=== PATIENT | female | born 1985 | race African-American/Black ===

== ENCOUNTER 2020-10-24 16:40 | Inpatient (IN) | payer OTHER ==
[~2020-10-24] VITALS: Ht 165.1 cm; Wt 115.7 kg
[2020-10-24] MEDS ORDERED: ALBUTEROL 6.7GM HFA INHALER ORI ONE (17:45)
[2020-10-24] MEDS ORDERED: DEXAMETHASONE 10 MG/ML VIAL IV ONE (17:45)
[2020-10-24] MEDS ORDERED: PIPERACILLIN/TAZ 3.375G PREMIX 50 ML IV NR (18:15)
[2020-10-24] MEDS ORDERED: PIPERACILLIN/TAZOBACTAM 3.375GM/50ML PREMIX IV ONE (18:15)
[2020-10-24 19:48] LABS: BASOPHILS % 0.4 % (0.0-2.0); HEMATOCRIT. 44.9 % (36.0-48.0); MEAN CORPUSCULAR HEMOGLOBIN 29.9 pg (28.0-32.0); MEAN CORPUSCULAR VOLUME 89.2 fL (81.0-99.0); MEAN PLATELET VOLUME 8.4 fl (7.4-10.4); MONOCYTES % 5.9 % (2.0-8.0); NEUTROPHILS % 68.7 % (40.0-76.0); PLATELET 218 x1000/uL (130-400); RED BLOOD CELL COUNT 5.03 mill/uL (4.2-5.4); RED CELL DISTRIBUTION WIDTH 13.3 % (11.6-14.6)
[2020-10-24 19:53] LABS: CHLORIDE 104 mEq/L (98-107)
[2020-10-24 20:03] LABS: PROTHROMBIN TIME 10.4 sec (9.6-11.0)
[2020-10-24 20:09] LABS: HCG SCREEN NEGATIVE
[2020-10-24] MEDS ORDERED: POTASSIUM CHLORIDE 20MEQ TABLET SR PO NR (20:15)
[2020-10-24 20:38] LABS: CLARITY URINE CLEAR (CLEAR); COLOR URINE YELLOW (YELLOW); KETONES URINE TRACE (NEGATIVE); LEUKOCYTE ESTERASE URINE NEGATIVE (NEGATIVE); NITRITE URINE NEGATIVE (NEGATIVE); OCCULT BLOOD URINE NEGATIVE (NEGATIVE); PROTEIN URINE 4+ (NEGATIVE); SPECIFIC GRAVITY URINE 1.026 (1.005-1.030)
[2020-10-24] MEDS ORDERED: HYDRALAZINE 20MG/ML VIAL IV ONE (20:45)
[2020-10-24 22:40] VITALS: BP 154/108
[2020-10-25] MEDS ORDERED: IPRATROPIUM/ALBUTEROL 0.5-3(2.5)MG/3ML NEB HHN PRN
[2020-10-25] MEDS: ACETAMINOPHEN 325MG TABLET PO PRN ×2 (00:22→05:53)
[2020-10-25 04:00] VITALS: BP 154/100
[2020-10-25 08:00] VITALS: BP 164/103
[2020-10-25] MEDS ORDERED: PNEUMOCOCCAL 23-VAL P-SAC VAC 0.5 ML IM ONE (08:00)
[2020-10-25] MEDS: FAMOTIDINE 20MG TABLET PO SCH ×2 (08:23→16:24)
[2020-10-25] MEDS: ENOXAPARIN 30MG/0.3ML SYR SUBCUT SCH ×2 (08:24→21:19)
[2020-10-25] MEDS: AZITHROMYCIN 500 MG in DEXT 5% WATER 250 ML IV SCH (08:24)
[2020-10-25] MEDS: CEFTRIAXONE 1,000 MG in DEXTROSE 5% WATER 50 ML IV SCH (08:24)
[2020-10-25] MEDS ORDERED: DEXAMETHASONE 4MG/ML 1ML VIAL IV SCH (09:00)
[2020-10-25] MEDS ORDERED: CEFTRIAXONE 1 G PREMIX 50 ML IV SCH (09:00)
[2020-10-25] MEDS ORDERED: IBUPROFEN 600MG TABLET PO PRN (10:00)
[2020-10-25] MEDS: AMLODIPINE 10MG TABLET PO SCH (11:59)
[2020-10-25 12:00] VITALS: BP 191/94
[2020-10-25] MEDS ORDERED: NALOXONE HCL 0.4MG/ML VIAL IV PRN (14:15)
[2020-10-25] MEDS: HYDROCODONE/ACETAMINOPHEN 5/325MG TABLET PO PRN (15:29)
[2020-10-25 16:00] VITALS: BP 182/107
[2020-10-25] MEDS: LOSARTAN POTASSIUM 100 MG TABLET PO SCH (16:24)
[2020-10-25 18:00] VITALS: BP 145/92
[2020-10-25 19:36] LABS: *BARBITURATES SCREEN URINE NEGATIVE (NEGATIVE)
[2020-10-25 19:37] LABS: *BENZODIAZEPINES SCREEN URINE NEGATIVE (NEGATIVE); *COCAINE SCREEN URINE NEGATIVE (NEGATIVE); METHADONE URINE SCREEN NEGATIVE (NEGATIVE); OPIATES URINE SCREEN PRESUMTIVE POSITIVE (NEGATIVE); PHENCYCLIDINE URINE SCREEN NEGATIVE (NEGATIVE)
[2020-10-25 19:38] LABS: *AMPHETAMINES SCREEN URINE NEGATIVE (NEGATIVE)
[2020-10-25 19:39] LABS: CANNABINOID URINE SCREEN PRESUMTIVE POSITIVE (NEGATIVE)
[2020-10-25 20:00] VITALS: BP 190/123
[2020-10-25] MEDS: CLONIDINE 0.1MG TABLET PO PRN (21:45)
[2020-10-26] VITALS: BP 154/84
[2020-10-26 04:00] VITALS: BP 158/94
[2020-10-26] MEDS: HYDROCODONE/ACETAMINOPHEN 5/325MG TABLET PO PRN ×3 (06:12→21:16)
[2020-10-26] MEDS: GUAIFENESIN-DM 200MG-20MG/10ML UDC PO PRN (06:12)
[2020-10-26] MEDS: CLONIDINE 0.1MG TABLET PO PRN (06:13)
[2020-10-26] MEDS: LOSARTAN POTASSIUM 100 MG TABLET PO SCH (09:00)
[2020-10-26] MEDS: DEXAMETHASONE 10 MG/ML VIAL IV SCH (09:00)
[2020-10-26] MEDS: ACETAMINOPHEN 325MG TABLET PO PRN ×2 (09:34→18:08)
[2020-10-26] MEDS: AZITHROMYCIN 500 MG in DEXT 5% WATER 250 ML IV SCH (09:34)
[2020-10-26] MEDS: CEFTRIAXONE 1,000 MG in DEXTROSE 5% WATER 50 ML IV SCH (09:34)
[2020-10-26] MEDS: FAMOTIDINE 20MG TABLET PO SCH ×2 (09:35→18:07)
[2020-10-26] MEDS: AMLODIPINE 10MG TABLET PO SCH (09:35)
[2020-10-26] MEDS: ENOXAPARIN 30MG/0.3ML SYR SUBCUT SCH ×2 (09:36→21:17)
[2020-10-26 12:00] VITALS: BP 128/80
[2020-10-26] MEDS ORDERED: HYDRALAZINE HCL 50MG TABLET PO NR (13:00)
[2020-10-26] MEDS ORDERED: POTASSIUM CHLORIDE 20MEQ TABLET SR PO SCH (13:45)
[2020-10-26 16:00] VITALS: BP 121/75
[2020-10-26 20:00] VITALS: BP 137/92
[2020-10-26] MEDS: HYDRALAZINE HCL 50MG TABLET PO SCH (21:16)
[2020-10-27] VITALS (7 sets, daily range): BP systolic 136–178; BP diastolic 72–101
[2020-10-27] MEDS: AZITHROMYCIN 500 MG in DEXT 5% WATER 250 ML IV SCH (09:34)
[2020-10-27] MEDS: CEFTRIAXONE 1,000 MG in DEXTROSE 5% WATER 50 ML IV SCH (09:34)
[2020-10-27] MEDS: HYDRALAZINE HCL 50MG TABLET PO SCH ×2 (09:35→21:03)
[2020-10-27] MEDS: FAMOTIDINE 20MG TABLET PO SCH ×2 (09:35→17:39)
[2020-10-27] MEDS: DEXAMETHASONE 10 MG/ML VIAL IV SCH (09:35)
[2020-10-27] MEDS: AMLODIPINE 10MG TABLET PO SCH (09:36)
[2020-10-27] MEDS: HYDROCODONE/ACETAMINOPHEN 5/325MG TABLET PO PRN ×2 (09:36→21:02)
[2020-10-27] MEDS: LOSARTAN POTASSIUM 100 MG TABLET PO SCH (09:43)
[2020-10-27] MEDS: GUAIFENESIN-DM 200MG-20MG/10ML UDC PO PRN ×2 (09:43→17:38)
[2020-10-27] MEDS: ENOXAPARIN 30MG/0.3ML SYR SUBCUT SCH ×2 (09:43→21:03)
[2020-10-27] MEDS: ACETAMINOPHEN 325MG TABLET PO PRN (17:39)
[2020-10-27] MEDS: GUAIFENESIN 600MG ER TABLET PO SCH (21:03)
[2020-10-27] MEDS: CLONIDINE 0.1MG TABLET PO PRN (21:03)
[2020-10-28] VITALS: BP 149/92
[2020-10-28 04:00] VITALS: BP 160/99
[2020-10-28] MEDS: CLONIDINE 0.1MG TABLET PO PRN (04:52)
[2020-10-28 06:00] VITALS: BP 156/88
[2020-10-28] MEDS: CEFTRIAXONE 1,000 MG in DEXTROSE 5% WATER 50 ML IV SCH (08:19)
[2020-10-28] MEDS: GUAIFENESIN 600MG ER TABLET PO SCH (08:19)
[2020-10-28] MEDS: DEXAMETHASONE 10 MG/ML VIAL IV SCH (08:19)
[2020-10-28] MEDS: FAMOTIDINE 20MG TABLET PO SCH ×2 (08:19→17:00)
[2020-10-28] MEDS: AMLODIPINE 10MG TABLET PO SCH (08:19)
[2020-10-28] MEDS: LOSARTAN POTASSIUM 100 MG TABLET PO SCH (08:19)
[2020-10-28] MEDS: HYDRALAZINE HCL 50MG TABLET PO SCH (08:19)
[2020-10-28] MEDS: ENOXAPARIN 30MG/0.3ML SYR SUBCUT SCH (08:20)
[2020-10-28] MEDS: HYDROCODONE/ACETAMINOPHEN 5/325MG TABLET PO PRN (08:22)
[2020-10-28] MEDS ORDERED: AZITHROMYCIN 500 MG TABLET PO SCH (09:00)
[2020-10-28] MEDS: BENZONATATE 100MG CAPSULE PO SCH ×2 (11:35→14:00)
[2020-10-28 12:06] LABS: BG CARBOXYHEMOGLOBIN 0.8 % (0.5-1.5); BG DEOXYHEMOGLOBIN 10.1 % (0.0-5.0); BG FRACTION INSPIRED OXYGEN 21; BG HCO3 ACT 24.8 mmol/L (22.0-26.0); BG METHEMOGLOBIN 0.2 % (0.0-1.5); BG OXYGEN SATURATION 89.8 % (92.0-98.5); BG OXYHEMOGLOBIN 88.9 % (94.0-97.0); BG PCO2 36.8 mmHg (35.0-45.0); BG PH 7.446 (7.350-7.450); BG PO2 58.7 mmHg (75.0-100.0); BG SAMPLE SITE RIGHT RADIAL; BG VENT MODE ROOM AIR
[2020-10-28 16:00] VITALS: BP 151/96
[2020-10-28] MEDS ORDERED: AMLO10TA80 PO (16:53)
[2020-10-28] MEDS ORDERED: LOSA100T3 PO (16:53)
[2020-10-28] MEDS ORDERED: HYDR100T26 PO (16:53)
[2020-10-28 17:35] VITALS: BP 135/71
[2020-10-28] MEDS ORDERED: HYDRALAZINE HCL 100MG TABLET PO SCH (21:00)
== END 2020-10-28 18:00 | disposition home or self-care (01) | DRG 720 ==
LOC: ER 17:09 → ENRESERV 21:10 → 7WST 21:16 → EDBEDREQ 21:32 → EDBEDREQTM 21:32
PROVIDERS: ADMIT Internal Medicine; ATTEND Internal Medicine
DX: A41.89 Other specified sepsis (principal); U07.1 COVID-19; J96.01 Acute respiratory failure with hypoxia; J12.82 Pneumonia due to coronavirus disease 2019; E44.1 Mild protein-calorie malnutrition; E66.01 Morbid (severe) obesity due to excess calories; E87.6 Hypokalemia; I10 Essential (primary) hypertension; Z68.41 Body mass index [BMI] 40.0-44.9, adult
CPT/HCPCS: 36415; 36600; 71045; 80053; 80305; 81003; 82375; 82728; 82805; 83605; 83880; 84145; 84484; 84703; 85025; 85384; 86140; 93005; 94640; 99291; C1893; J0360; J0456; J0696; J1100; J1650; J2543; J7040; J7060; U0003; U0005